=== PATIENT | male | born 1990 | race Caucasian/White ===

== ENCOUNTER 2016-05-29 15:48 | Emergency (ER) | payer OTHER ==
[~2016-05-29] VITALS: Ht 172.7 cm; Wt 60.5 kg
[~2016-05-29 15:48] MED LIST: IBUP-1542 PO; LEVO750T25 PO; UDROBDM PO
[2016-05-29 16:21] VITALS: Ht 172.7 cm; Wt 60.5 kg
[2016-05-29] MEDS ORDERED: AMOX1TAB10 PO (16:40)
[2016-05-29] MEDS ORDERED: BENZ100C70 PO (16:40)
[2016-05-29] MEDS ORDERED: CETI10TA34 PO (16:40)
--- NOTE | 2016-05-29 17:11 | ERD ---
ER Documentation Chief Complaint Date/Time DATE: 05/29/16 TIME: 17:03 Chief Complaint RUNNY NOSE "CANNOT SEEM TO CLEAR IT OUT" HPI Patient is a 25-year-old male complaining of chronic runny nose and congestion with occasional cough. Patient has not seen his primary care provider for several years. Patient denies any episodes of fever, shortness of breath, night sweats, chills, drooling, dysphagia, epistaxis or hematemesis. No history of smoking and patient had a flu shot this season. ROS All systems reviewed and are negative except as per history of present illness. Medications Home Meds Active Scripts Cetirizine Hcl* (Cetirizine Hcl*) 10 Mg Tab.chew, 10 MG PO DAILY, #30 TAB Prov:ESTEVAN NAILS 05/29/16 Benzonatate* (Tessalon Perle*) 100 Mg Capsule, 100 MG PO Q8H Y for COUGH, #30 CAP Prov:ESTEVAN NAILS 05/29/16 Amoxicillin/Potassium Clav (Amox-Clav 875-125 mg Tablet) 875-125 mg Tab, 1 TAB PO BID for 10 Days, #20 TAB Prov:ESTEVAN NAILS 05/29/16 Ibuprofen* (Motrin*) 600 Mg Tab, 600 MG PO Q6, #30 TAB Prov:RUSTAM LORENZO PA-C 11/07/15 Guaifenesin-Dextromethorphan* (Robitussin* DM) 100MG/10MG/5ML Syrup, 5 ML PO Q6H Y for COUGH, #4 OZ Prov:RUSTAM LORENZO PA-C 11/07/15 Levofloxacin* (Levaquin*) 750 Mg Tablet, 750 MG PO DAILY for 5 Days, TAB Prov:RUSTAM LORENZO PA-C 11/07/15 Allergies Allergies: Coded Allergies: No Known Allergy (Unverified , 11/07/15) PMhx/Soc History of Surgery: Yes Hx Neurological Disorder: No Hx Respiratory Disorders: Yes ("lung infection of my lungs that had to be drained") Hx Cardiac Disorders: No Hx Psychiatric Problems: No Hx Miscellaneous Medical Probl: No Hx Alcohol Use: Yes (2-3 beers/week) Hx Substance Use: No Hx Tobacco Use: No Physical Exam Vitals Vital Signs Date Time Temp Pulse Resp B/P Pulse Ox O2 Delivery O2 Flow Rate FiO2 3/3/17 16:21 98.8 79 16 121/59 95 Physical Exam Physical Exam CONST: Well-developed, well-nourished, in no acute distress. Nontoxic in appearance. HEENT: Atraumatic. Bilateral nasal turbinates are erythematous but not swollen. Right tympanic membrane is erythematous and slightly bulging. No TM perforation or discharge. Normal Conjunctiva. EOM intact. External ear is normal. Clear oropharnyx without erythema. No Uvular deviation. Moist mucous membranes. Supple neck. No meningismus. No submandibular induration. RESP: Clear to auscultation bilaterally. No wheezing. CARDIO: Regular rate and rhythm, no murmurs. ABD: Soft, non tender, non distended. Normal bowel sounds. No McBurney's point tenderness. No guarding or rigidity. No peritoneal signs. SKIN: No petechiae or rashes. BACK: No midline or flank tenderness. EXT: No cyanosis or edema. Distal pulses equal and bilateral. NEURO: Awake and alert, appropriate for age Procedures/MDM EMERGENCY DEPARTMENT COURSE/MEDICAL DECISION MAKING This is a 25-year-old male who comes to the emergency room secondary to complaints of chronic nasal congestion and runny nose with occasional cough. Patient is afebrile upon assessment. Examination shows right TM erythema and bulging, erythematous nasal turbinates without swelling. My primary diagnosis is otitis media. Secondary diagnosis are stuffy and runny nose Differential diagnoses considered, included but not limited to pneumonia, bronchitis, influenza, upper respiratory infection, asthma, pharyngitis, peritonsillar abscess, otitis externa.. Pt is hemodynamically stable upon reassessment. The patient was discharged for outpatient management with a prescription for Augmentin, Zyrtec and Tessalon. Community resources for PCP were handed to the patient. The patient was advised to initiate followup with their PMD in 1-2 days and to return to the Emergency Department if there are any new or worsening symptoms. The patient understood and agreed with the diagnosis, treatment and plan. Patient is stable for discharge at this time. Departure Diagnosis: Primary Impression: Otitis media Otitis media type: unspecified Laterality: right Chronicity: unspecified Qualified Code: H66.91 - Right otitis media, unspecified chronicity, unspecified otitis media type Additional Impression: Stuffy and runny nose Condition: Stable Patient Instructions: Otitis Media, Abx Tx (Adult) Referrals: [facility] YOU HAVE RECEIVED A MEDICAL SCREENING EXAM AND THE RESULTS INDICATE THAT YOU DO NOT HAVE A CONDITION THAT REQUIRES URGENT TREATMENT IN THE EMERGENCY DEPARTMENT. FURTHER EVALUATION AND TREATMENT OF YOUR CONDITION CAN WAIT UNTIL YOU ARE SEEN IN YOUR DOCTORS OFFICE WITHIN THE NEXT 1-2 DAYS. IT IS YOUR RESPONSIBILITY TO MAKE AN APPOINTMENT FOR FOLOW-UP CARE. IF YOU HAVE A PRIMARY DOCTOR --you should call your primary doctor and schedule an appointment IF YOU DO NOT HAVE A PRIMARY DOCTOR YOU CAN CALL OUR PHYSICIAN REFERRAL HOTLINE AT IF YOU CAN NOT AFFORD TO SEE A PHYSICIAN YOU CAN CHOSE FROM THE FOLLOWING [facility] [address] [facility]. [facility] [address] [facility]. [facility] [address] [facility] [facility] [address] [facility]. [facility] [address] [facility]. [facility] [address] Additional Instructions: Follow-up with your primary care physician in 1-2 days. Return to the emergency department immediately should you have any new or worsening symptoms, uncontrolled fevers, or other unexplained symptoms. Take all medications as directed. ESTEVAN NAILS May 29, 2016 17:11
== END 2016-05-30 16:46 | disposition home or self-care (01) ==
LOC: E/R 15:48
DX: H66.91 Otitis media, unspecified, right ear (principal); R09.89 Other specified symptoms and signs involving the circulatory and respiratory systems
CPT/HCPCS: 99284

== ENCOUNTER 2016-06-23 09:19 | Emergency (ER) | payer OTHER ==
[~2016-06-23] VITALS: Ht 167.6 cm; Wt 61.0 kg
[~2016-06-23 09:19] MED LIST changes: +AMOX1TAB10 PO; +BENZ100C70 PO; +CETI10TA34 PO
[2016-06-23 09:23] VITALS: Ht 167.6 cm; Wt 61.0 kg
[2016-06-23] MEDS ORDERED: AMOX1TAB10 PO (10:10)
[2016-06-23] MEDS ORDERED: IBUP-1542 PO (10:10)
[2016-06-23] MEDS ORDERED: FLUT9.9S NASAL (10:11)
--- NOTE | 2016-06-23 10:20 | ERD ---
ER Documentation Chief Complaint Date/Time DATE: 06/23/16 TIME: 10:16 Chief Complaint bite on nose by uncle's dog HPI This is a 25-year-old male who presents to the emergency department today for complaints of being bit by his uncles dog on his nose. He is not up-to-date on his tetanus. States that the medication he was given for his nose last time is "not working". States that he also wants to get his cholesterol checked. Denies any fevers or chills. ROS All systems reviewed and are negative except as per history of present illness. Medications Home Meds Active Scripts Fluticasone Propionate (Flonase Allergy Relief) 9.9 Ml [place].susp, 1 SPRAY NASAL DAILY, #1 BOTTLE TO EACH NOSTRIL Prov:BOSTON HANDLEY PA-C 06/23/16 Amoxicillin/Potassium Clav (Amox-Clav 875-125 mg Tablet) 875-125 mg Tab, 1 TAB PO BID for 7 Days, #14 TAB Prov:BOSTON HANDLEY PA-C 06/23/16 Ibuprofen* (Motrin*) 600 Mg Tab, 600 MG PO Q6, #30 TAB Prov:BOSTON HANDLEY PA-C 06/23/16 Cetirizine Hcl* (Cetirizine Hcl*) 10 Mg Tab.chew, 10 MG PO DAILY, #30 TAB Prov:ESTEVAN NAILS 05/29/16 Benzonatate* (Tessalon Perle*) 100 Mg Capsule, 100 MG PO Q8H Y for COUGH, #30 CAP Prov:ESTEVAN NAILS 05/29/16 Amoxicillin/Potassium Clav (Amox-Clav 875-125 mg Tablet) 875-125 mg Tab, 1 TAB PO BID for 10 Days, #20 TAB Prov:ESTEVAN NAILS 05/29/16 Ibuprofen* (Motrin*) 600 Mg Tab, 600 MG PO Q6, #30 TAB Prov:RUSTAM LORENZO PA-C 11/07/15 Guaifenesin-Dextromethorphan* (Robitussin* DM) 100MG/10MG/5ML Syrup, 5 ML PO Q6H Y for COUGH, #4 OZ Prov:RUSTAM LORENZO PA-C 11/07/15 Levofloxacin* (Levaquin*) 750 Mg Tablet, 750 MG PO DAILY for 5 Days, TAB Prov:RUSTAM LORENZO PA-C 11/07/15 Allergies Allergies: Coded Allergies: No Known Allergy (Unverified , 11/07/15) PMhx/Soc Medical and Surgical Hx: pt denies Medical Hx, pt denies Surgical Hx History of Surgery: Yes Hx Neurological Disorder: No Hx Respiratory Disorders: Yes ("lung infection of my lungs that had to be drained") Hx Cardiac Disorders: No Hx Psychiatric Problems: No Hx Miscellaneous Medical Probl: No Hx Alcohol Use: Yes (2-3 beers/week) Hx Substance Use: No Hx Tobacco Use: No Smoking Status: Never smoker Physical Exam Vitals Vital Signs Date Time Temp Pulse Resp B/P Pulse Ox O2 Delivery O2 Flow Rate FiO2 06/23/16 09:23 97.7 72 20 134/73 98 Physical Exam Const: NAD Head: Atraumatic Eyes: Normal Conjunctiva ENT: Left nare with evidence of dog bite. No laceration. Evidence of clotted blood. No purulent drainage. No erythema or warmth. Nose no drainage. Throat no erythema no exudate Neck: Full range of motion..~ No meningismus. Resp: Clear to auscultation bilaterally Cardio: Regular rate and rhythm, no murmurs Abd: Soft, non tender, non distended. Normal bowel sounds Skin: Evidence of dog bite left nare. Neur: Awake and alert Psych: Normal Mood and Affect Results 24 hrs Current Medications Medications (Trade) Dose Ordered Sig/Desirae Route PRN Reason Start Time Stop Time Status Last Admin Dose Admin Diphtheria/ Tetanus/Acell Pertussis (Adacel) 0.5 ml ONCE ONCE IM* 06/23/16 10:30 06/23/16 10:31 Procedures/MDM This a 25-year-old male who presents to the emergency department today for a dog bite he sustained on the left nare yesterday by his uncles dog. Patient was not up-to-date on his tetanus and was therefore given a tetanus injection. Area of dog bite appears to have clotted blood it is only half a millimeter in size. There is no indication for sutures at this time. There is no purulent drainage. There is no erythema or warmth. Low suspicion for sepsis, deep space infection. Patient is afebrile and otherwise well-appearing. She was given a per prescription for Augmentin and instructed to follow-up for a wound check in 48 hours. Patient also indicated that the medication he was given for his nose on his last visit "did not work". Patient was seen here at the beginning of May and was treated for otitis media and nasal congestion with Augmentin and Zyrtec. Patient was given a prescription today for Flonase. He was also given a prescription for Motrin for any pain. Wound was cleaned here in the emergency department. He was instructed to return in 48 hours for a wound check. At this time the patient is stable for discharge and outpatient management. Patient should follow up with their PCP in the next 1-2 days. They may return to the emergency department sooner for any persistent or worsening of symptoms. Patient understood and agreed with the plan. Departure Diagnosis: Primary Impression: Dog bite Encounter type: initial encounter Qualified Code: W54.0XXA - Dog bite, initial encounter Condition: Fair Patient Instructions: Dog Bite Referrals: [facility] YOU HAVE RECEIVED A MEDICAL SCREENING EXAM AND THE RESULTS INDICATE THAT YOU DO NOT HAVE A CONDITION THAT REQUIRES URGENT TREATMENT IN THE EMERGENCY DEPARTMENT. FURTHER EVALUATION AND TREATMENT OF YOUR CONDITION CAN WAIT UNTIL YOU ARE SEEN IN YOUR DOCTORS OFFICE WITHIN THE NEXT 1-2 DAYS. IT IS YOUR RESPONSIBILITY TO MAKE AN APPOINTMENT FOR FOLOW-UP CARE. IF YOU HAVE A PRIMARY DOCTOR --you should call your primary doctor and schedule an appointment IF YOU DO NOT HAVE A PRIMARY DOCTOR YOU CAN CALL OUR PHYSICIAN REFERRAL HOTLINE AT IF YOU CAN NOT AFFORD TO SEE A PHYSICIAN YOU CAN CHOSE FROM THE FOLLOWING [facility] [address] [facility]. [facility] [address] [facility] [address] [facility] [address]. [facility] [address] [facility] [facility]. [address] Additional Instructions: Call your primary care doctor TOMORROW for an appointment during the next 1-2 days.See the doctor sooner or return here if your condition worsens before your appointment time. Wound check 48 hours Take Motrin or tylenoln if you have any pain Take antibiotics as prescribed Use Flonase for nasal congestion BOSTON HANDLEY PA-C Jun 23, 2016 10:20
[2016-06-23] MEDS ORDERED: DIPHTH/TET/ACEL PERTUSS (ADULT) 0.5 ML VIAL IM* ONE (10:30)
== END 2016-06-23 10:23 | disposition home or self-care (01) ==
LOC: FTE 09:19
DX: S01.25XA Open bite of nose, initial encounter (principal); W54.0XXA Bitten by dog, initial encounter; Y92.9 Unspecified place or not applicable; Z23 Encounter for immunization
CPT/HCPCS: 90471; Z7502

== ENCOUNTER 2016-07-05 16:00 | Emergency (ER) | payer OTHER ==
[~2016-07-05] VITALS: Wt 57.5 kg
[~2016-07-05 16:00] MED LIST changes: +FLUT9.9S NASAL
[2016-07-05] MEDS ORDERED: IPRATROPIUM (NEB) 0.5 MG/2.5 ML AMP NEB STA (16:43)
[2016-07-05] MEDS ORDERED: ALBUTEROL 0.083% (NEB) 2.5 MG/3 ML AMP NEB STA (16:43)
[2016-07-05] MEDS ORDERED: ONDANSETRON (ODT) 4 MG TAB ODT STA (16:43)
--- NOTE | 2016-07-05 17:59 | ERD ---
ER Documentation Chief Complaint Date/Time DATE: 07/05/16 TIME: 17:53 Chief Complaint COUGH, FEVER, ONSET SEVERAL DAYS HPI This is a 26-year-old male who presents to the emergency department today complaining of fever, cough, intermittent vomiting, rib pain, body aches for the past 4 days. Patient states he last took Motrin or Tylenol on . Denies any abdominal pain, sore throat, earache or diarrhea ROS All systems reviewed and are negative except as per history of present illness. Medications Home Meds Active Scripts Acetaminophen* (Tylophen*) 500 Mg Capsule, 1 CAP PO Q6H Y for PAIN AND OR ELEVATED TEMP, #30 CAP Prov:BOSTON HANDLEY PA-C 07/05/16 Ibuprofen* (Motrin*) 600 Mg Tab, 600 MG PO Q6, #30 TAB Prov:BOSTON HANDLEY PA-C 07/05/16 Ondansetron Hcl* (Zofran*) 4 Mg Tablet, 4 MG PO Q6H for NAUSEA AND/OR VOMITING, #30 TAB Prov:BOSTON HANDLEY PA-C 07/05/16 Albuterol Sulfate* (Ventolin HFA*) 18 Gm Hfa.aer.ad, 2 PUFF INHALATION Q4H, #1 INHALER Prov:BOSTON HANDLEY PA-C 07/05/16 Azithromycin* (Zithromax*) 250 Mg Tablet, 250 MG PO .ZPACK DIRECTED, #6 TAB TAKE 500 MG (2 TABS) THE FIRST DAY THEN 250 MG (1 TAB) DAYS 2-5 Prov:BOSTON HANDLEY PA-C 07/05/16 Fluticasone Propionate (Flonase Allergy Relief) 9.9 Ml [place].susp, 1 SPRAY NASAL DAILY, #1 BOTTLE TO EACH NOSTRIL Prov:BOSTON HANDLEY PA-C 06/23/16 Amoxicillin/Potassium Clav (Amox-Clav 875-125 mg Tablet) 875-125 mg Tab, 1 TAB PO BID for 7 Days, #14 TAB Prov:BOSTON HANDLEY PA-C 06/23/16 Ibuprofen* (Motrin*) 600 Mg Tab, 600 MG PO Q6, #30 TAB Prov:BOSTON HANDLEY PA-C 06/23/16 Cetirizine Hcl* (Cetirizine Hcl*) 10 Mg Tab.chew, 10 MG PO DAILY, #30 TAB Prov:ESTEVAN NAILS 05/29/16 Benzonatate* (Tessalon Perle*) 100 Mg Capsule, 100 MG PO Q8H Y for COUGH, #30 CAP Prov:ESTEVAN NAILS 05/29/16 Amoxicillin/Potassium Clav (Amox-Clav 875-125 mg Tablet) 875-125 mg Tab, 1 TAB PO BID for 10 Days, #20 TAB Prov:ESTEVAN NAILS 05/29/16 Ibuprofen* (Motrin*) 600 Mg Tab, 600 MG PO Q6, #30 TAB Prov:RUSTAM LORENZO PA-C 11/07/15 Guaifenesin-Dextromethorphan* (Robitussin* DM) 100MG/10MG/5ML Syrup, 5 ML PO Q6H Y for COUGH, #4 OZ Prov:RUSTAM LORENZO PA-C 11/07/15 Levofloxacin* (Levaquin*) 750 Mg Tablet, 750 MG PO DAILY for 5 Days, TAB Prov:RUSTAM LORENZO PA-C 11/07/15 Allergies Allergies: Coded Allergies: No Known Allergy (Unverified , 07/05/16) PMhx/Soc History of Surgery: Yes Hx Neurological Disorder: No Hx Respiratory Disorders: Yes ("lung infection of my lungs that had to be drained"; pneumonia) Hx Cardiac Disorders: No Hx Psychiatric Problems: No Hx Miscellaneous Medical Probl: No Hx Alcohol Use: Yes (2-3 beers/week) Hx Substance Use: No Hx Tobacco Use: No Smoking Status: Never smoker Physical Exam Vitals Vital Signs Date Time Temp Pulse Resp B/P Pulse Ox O2 Delivery O2 Flow Rate FiO2 07/05/16 16:02 99.8 88 17 110/59 99 Physical Exam Const: No acute distress Head: Atraumatic Eyes: Normal Conjunctiva ENT: Ears TMs normal. Nose no drainage. Throat no erythema no exudate Neck: Full range of motion..~ No meningismus. Resp: Wheezing right side lung le. Left-sided lung le clear. Cardio: Regular rate and rhythm, no murmurs Abd: Soft, non tender, non distended. Normal bowel sounds. No right lower quadrant pain. No left lower quadrant pain. Skin: No petechiae or rashes Neur: Awake and alert Psych: Normal Mood and Affect Results 24 hrs Current Medications Medications (Trade) Dose Ordered Sig/Desirae Route PRN Reason Start Time Stop Time Status Last Admin Dose Admin Albuterol (Proventil 0.083% (Neb)) 5 mg ONCE STAT NEB 07/05/16 16:43 07/05/16 16:46 DC 07/05/16 17:41 Ipratropium [place] (Atrovent 0.02% (Neb)) 0.5 mg ONCE STAT NEB 07/05/16 16:43 07/05/16 16:46 DC 07/05/16 17:41 Ondansetron HCl (Zofran Odt) 4 mg ONCE STAT ODT 07/05/16 16:43 07/05/16 16:46 DC 07/05/16 17:41 DIAGNOSTIC IMAGING REPORT Patient: NATALIA RASMUSSEN : 1990 Age: 26 Sex: M MR #: [id number] DOS: 07/05/16 1643 Ordering MD: BOSTON HANDLEY PA-C Location: [facility] Room/Bed: PROCEDURE: XR Chest. CLINICAL INDICATION: Asthma exacerbation. TECHNIQUE: Chest x-ray, single view. COMPARISON: 11/07/2015. FINDINGS: The cardiomediastinal silhouette is normal. Prominent basilar interstitial lung markings are present and slightly more prominent from prior examination and may be accentuated by low lung volumes. A small focal hazy opacity of the right perihilar region is observed and may reflect atelectatic change or developing airspace disease. there is no evidence of large pleural effusion. Skeletal structures and upper abdomen are unremarkable. IMPRESSION: Prominent basilar interstitial lung markings, slightly more prominent from prior examination which may be accentuated by low lung volumes. Small focal hazy opacity of the right perihilar region may reflect atelectatic change or developing airspace disease. Follow-up chest x-ray may be obtained. RPTAT: HH .Jane Salinas MD, MD Date Time Electronically viewed and signed by .Jane Salinas MD, on 07/05/2016 17:58 .T/ CC: BOSTON HANDLEY PA-C Procedures/MDM This a 26-year-old male who presents the emergency department today with multiple complaints. Patient is afebrile here in the emergency department. His oxygen saturation is 99% however on physical exam patient had diffuse wheezing in the ride side of his lung le. I did give the patient a breathing treatment as well as obtain a chest x-ray as he has had a history of pneumonia in December of last year. Patient reported some somatic improvement after his breathing treatment. Chest x-ray shows a prominent basilar interstitial lung markings that are present slightly more prominent from prior examination. There is a small focal hazy opacity of the right perihilar region observed may reflect atelectatic change or developing airspace disease. There is no evidence of large pleural effusion. Patient will be given a prescription for azithromycin to treat possible early pneumonia versus bronchitis versus viral URI Patient was also given Zofran for nausea or vomiting Patient does appear to also be exhibiting influenza-like symptoms however I do not feel the patient would benefit from Tamiflu at this time given the duration of his symptoms as he has had it for 4 days. Patient is afebrile here in the emergency department. I will give him a prescription for Tylenol, Motrin, Ventolin, and Zofran as well I have low suspicion for strep pharyngitis, peritonsillar abscess, retropharyngeal abscess, otitis media, sinusitis, abscess, meningitis, sepsis, or other acute infectious bacterial process. At this time the patient is stable for discharge and outpatient management. They should follow up with their PCP in the next 1-2. They may return to the emergency department sooner if symptoms persist or worsen. Patient understood and agreed with the plan. Departure Diagnosis: Primary Impression: Pneumonia Pneumonia type: due to unspecified organism Laterality: right Lung location : middle lobe of lung Qualified Code: J18.1 - Pneumonia of right middle lobe due to infectious organism Condition: Fair BOSTON HANDLEY PA-C Jul 05, 2016 17:59
--- NOTE | 2016-07-05 17:59 | RADRPT ---
PROCEDURE: XR Chest. CLINICAL INDICATION: Asthma exacerbation. TECHNIQUE: Chest x-ray, single view. COMPARISON: 11/07/2015. FINDINGS: The cardiomediastinal silhouette is normal. Prominent basilar interstitial lung markings are presen t and slightly more prominent from prior examination and may be accentuated by low lung volumes. A small focal hazy opacity of the right perihilar region is observed and may reflect atelectatic serna e or developing airspace disease. there is no evidence of large pleural effusion. Skeletal structu res and upper abdomen are unremarkable. IMPRESSION: Prominent basilar interstitial lung markings, slightly more prominent from prior examination which m ay be accentuated by low lung volumes. Small focal hazy opacity of the right perihilar region may reflect atelectatic change or developing airspace disease. Follow-up chest x-ray may be obtained. RPTAT: HH .Jane Salinas MD, MD Date Time Electronically viewed and signed by .Jane Salinas MD, MD on 07/05/2016 17:58 .T/
[2016-07-05] MEDS ORDERED: AZIT250T94 PO (18:05)
[2016-07-05] MEDS ORDERED: IBUP-1542 PO (18:06)
[2016-07-05] MEDS ORDERED: ACET500C5 PO (18:06)
[2016-07-05] MEDS ORDERED: ALBU18HF INHALATION (18:06)
[2016-07-05] MEDS ORDERED: ONDA4TAB8 PO (18:06)
== END 2016-07-05 18:34 | disposition home or self-care (01) ==
LOC: FTE 16:00
DX: J18.1 Lobar pneumonia, unspecified organism (principal); R11.10 Vomiting, unspecified; R05 Cough
CPT/HCPCS: 71010; 94664; Z7610

== ENCOUNTER 2016-08-15 23:34 | Emergency (ER) | payer OTHER ==
[~2016-08-15] VITALS: Ht 172.7 cm; Wt 59.0 kg
[~2016-08-15 23:34] MED LIST changes: +ACET500C5 PO; +ALBU18HF INHALATION; +AZIT250T94 PO; +ONDA4TAB8 PO
[2016-08-16 00:12] VITALS: Ht 172.7 cm; Wt 59.0 kg
[2016-08-16] MEDS ORDERED: KETOROLAC 60 MG INJ IM STA (02:33)
[2016-08-16] MEDS ORDERED: HYDROCODONE/APAP (5/325) TAB PO ONE (03:00)
--- NOTE | 2016-08-16 03:24 | RADRPT ---
PROCEDURE: Right hand. CLINICAL INDICATION: Pain. TECHNIQUE: Three views including PA, lateral and oblique views of the right hand were obtained. COMPARISON: None. FINDINGS: There is no fracture, dislocation or bone destruction. The joint spaces are within normal limits. Bone mineralization is within normal limits. There is no radiopaque foreign body or abnormal calcif ication. IMPRESSION: No evidence of fracture. .Kennedy Cody MD, MD Date Time Electronically viewed and signed by .Kennedy Cody MD, on 08/16/2016 03:24 .T/
--- NOTE | 2016-08-16 03:31 | RADRPT ---
PROCEDURE: Right wrist. CLINICAL INDICATION: Pain. TECHNIQUE: Three views including PA, lateral and oblique views of the right wrist were performed. COMPARISON: None. FINDINGS: There is no fracture, dislocation or bone destruction. The joint spaces are within normal limits. Bone mineralization is within normal limits. There is no radiopaque foreign body or abnormal calcif ication. IMPRESSION: No evidence of fracture. .Kennedy Cody MD, MD Date Time Electronically viewed and signed by .Kennedy Cody MD, on 08/16/2016 03:30 .T/
[2016-08-16] MEDS ORDERED: NAPR-688 PO (04:25)
[2016-08-16 04:34] VITALS: BP 122/64; PULSE 62; RESP 16
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
== END 2016-08-16 04:35 | disposition home or self-care (01) ==
LOC: FTE 23:34
DX: S60.222A Contusion of left hand, initial encounter (principal); S63.501A Unspecified sprain of right wrist, initial encounter; V13.4XXA Pedal cycle driver injured in collision with car, pick-up truck or van in traffic accident, initial encounter
CPT/HCPCS: 29125; 73110; 73130; 96372; J1885; Z7502; Z7610